=== PATIENT | female | born 1930 | race Native Hawaiian/Other Pacific Islander ===

== ENCOUNTER 2017-06-02 09:15 | Outpatient (CLI) | payer OTHER ==
[~2017-06-02 09:15] MED LIST: ALPR0.5T24 PO; ASPIR-8181 MG OR; ATEN25TA21 PO; DOCU100C10 PO; DULO30CA OR; LEVO0.0529 PO; LISI20TA11 PO; SIMV20TA2 PO
== END 2017-06-02 21:39 | disposition home or self-care (01) ==
LOC: RAD 09:15
DX: M81.0 Age-related osteoporosis without current pathological fracture (principal)